=== PATIENT | female | born 1995 | race Caucasian/White ===

== ENCOUNTER 2016-11-16 10:51 | Emergency (ER) | payer OTHER ==
[2016-11-16] MEDS ORDERED: Metoclopramide IV* 5 MG/ML 2 ML VIAL IV ONE (14:16)
[2016-11-16] MEDS ORDERED: NS 0.9% 1000 ML* 1,000 ML IV ONE (14:16)
[2016-11-16 14:33] LABS: Hematocrit 44 % (35-47); Hemoglobin 14.6 g/dl (12.0-16.0); Mean Corpuscular HGB Conc 33 g/dl (31-36); Mean Corpuscular Hemoglobin 29 pg (27-31); Mean Corpuscular Volume 87 fL (80-97); Mean Platelet Volume 8 um3 (7.4-10.4); Red Blood Count 5.11 10^6/ul (4.0-5.4); Red Cell Distribution Width 14 % (10.5-15); White Blood Count 9.3 10^3/ul (3.5-10.8)
[2016-11-16 14:42] LABS: Urine Bacteria Absent (Absent); Urine Bilirubin Negative (Negative); Urine Glucose Negative (Negative); Urine Nitrite Negative (Negative)
[2016-11-16 15:08] LABS: ALT 21 U/L (7-52); AST 20 U/L (13-39); Albumin 4.4 g/dL (3.2-5.2); Alkaline Phosphatase 57 U/L (34-104); Anion Gap 9 mmol/L (2-11); BUN/Creatinine Ratio 8.9 (8-20); Blood Urea Nitrogen 7 mg/dL (6-24); CO2 Carbon Dioxide 23 mmol/L (22-32); Calcium 9.7 mg/dL (8.6-10.3); Chloride 105 mmol/L (101-111); EGFR African American 119.3 (>60); EGFR Non-African American 92.8 (>60); Globulin 3.2 g/dL (2-4); Glucose 98 mg/dL (70-100); Lipase < 10 U/L (11.0-82.0); Potassium 3.9 mmol/L (3.5-5.0); Sodium 137 mmol/L (133-145); Total Protein 7.6 g/dL (6.4-8.9)
[2016-11-16] MEDS ORDERED: Metoclopramide IV* 5 MG/ML 2 ML VIAL ONE ×2 (15:08)
[2016-11-16] MEDS ORDERED: Iohexol 300* (CONTRAST) 10 ML SDV IV ONE (15:53)
[2016-11-16 16:06] VITALS: BP 123/78
--- NOTE | 2016-11-16 16:49 | RAD ---
INDICATION: Abdominal pain. COMPARISON: There are no prior studies available for comparison. TECHNIQUE: A CT scan of the abdomen and pelvis was performed with intravenous and oral contrast following intravenous injection of 100 ml of Omnipaque 300 nonionic contrast. Contiguous axial sections were obtained from the lung bases through the symphysis pubis. Images were reconstructed in the coronal and sagittal planes. FINDINGS: The lung bases are clear. No pleural effusion is present. The liver and spleen are within normal limits in size without significant focal abnormality. No calcified gallstones are seen. The pancreas appears to be within normal limits in size. The kidneys and adrenal glands are normal in size. No hydronephrosis is seen. No significant focal renal abnormality is seen. The aorta is normal in caliber and demonstrates homogeneous contrast opacification. No significant enlarged retroperitoneal lymph nodes are seen. The stomach, small and large bowel appear nondistended. The appendix is within normal limits. There is no evidence for diverticulitis or colitis. There is an anterior abdominal wall hernia present in the midline above the periumbilical region containing fat. There is also a smaller periumbilical hernia containing fat. The uterus is retroverted and normal in size. No free intraperitoneal air or fluid is seen. No significant focal osseous abnormality is seen. IMPRESSION: 1. NO EVIDENCE FOR ACUTE FINDING OR CAUSE FOR THE PATIENT'S ABDOMINAL PAIN IS SEEN. 2. ANTERIOR ABDOMINAL WALL HERNIAS CONTAINING FAT DESCRIBED.
--- NOTE | 2016-11-29 17:37 | ED ---
Candido Fuentes Adam, scribed for Yohan Dalton MD on 11/16/16 at 1333 . GI/ HPI - HPI Summary HPI Summary: Pt is a 21 year old female presenting with abdominal pain and N/V/D. She has pain in her right flank in the back and the front. She reports finding some blood in her vomit. She also c/o dizziness, lightheadedness, and general malaise. She states that she had gastroenteritis 2 weeks ago for 4 days with vomiting and diarrhea. She went to at that time and was given fluids. Pt is on Zoloft. She denies any surgical Hx. Negative tobacco/alcohol use. - History of Current Complaint Chief Complaint: EDNauseaVomitDiarrh Time Seen by Provider: 11/16/16 12:59 Stated Complaint: VOMITING / DIARRHEA Hx Obtained From: Patient Onset/Duration: Started Days Ago, Atraumatic, Still Present Timing: Constant Severity: Moderate Current Severity: Moderate Pain Intensity: 5 Location of Pain: Diffuse, RLQ, Flank - Right Associated Signs and Symptoms: Positive: Dizziness, Nausea, Vomiting - With blood, Diarrhea, Abdominal Pain - Allergy/Home Medications Allergies/Adverse Reactions: Allergies Allergy/AdvReac Type Severity Reaction Status Date / Time No Known Allergies Allergy Verified 11/16/16 11:05 PMH/Surg Hx/FS Hx/Imm Hx Endocrine/Hematology History: Denies: Hx Diabetes Cardiovascular History: Denies: Hx Hypertension Infectious Disease History: Denies: Traveled Outside the [place] in Last 30 Days - Family History Known Family History: Positive: None - R and n/c - Social History Occupation: Student Lives: With Family - Mother Review of Systems Positive: Other - Malaise. Negative: Fever, Chills Negative: Erythema Negative: Sore Throat Negative: Chest Pain Negative: Shortness Of Breath, Cough Positive: Abdominal Pain, Vomiting - With blood, Diarrhea, Nausea Positive: flank pain - Right. Negative: dysuria, hematuria Negative: Myalgia, Edema Negative: Rash Neurological: Other - Dizziness/lightheadedness All Other Systems Reviewed And Are Negative: Yes Physical Exam - Summary Physical Exam Summary: Constitutional: Well-developed, Well-nourished, Alert. (-) Distressed Skin: Warm, Dry HENT: Normocephalic; Atraumatic Eyes: Conjunctiva normal Neck: Musculoskeletal ROM normal neck. (-) JVD, (-) Stridor, (-) Tracheal deviation Cardio: Rhythm regular, rate normal, Heart sounds normal; Intact distal pulses; The pedal pulses are 2+ and symmetric. Radial pulses are 2+ and symmetric. (-) Murmur Pulmonary/Chest wall: Effort normal. (-) Respiratory distress, (-) Wheezes, (-) Rales Abd: Soft, (-) Tenderness, (-) Distension, (-) Guarding, (-) Rebound Musculoskeletal: (-) Edema Lymph: (-) Cervical adenopathy Neuro: Alert, Oriented x3 Psych: Mood and affect Normal Triage Information Reviewed: Yes Vital Signs On Initial Exam: Initial Vitals Temp Pulse Resp BP Pulse Ox 97.6 F 74 18 139/85 97 11/16/16 11:02 11/16/16 11:02 11/16/16 11:02 11/16/16 11:02 11/16/16 11:02 Vital Signs Reviewed: Yes Diagnostics - Vital Signs Vital Signs Temp Pulse Resp BP Pulse Ox 11/16/16 11:02 97.6 F 74 18 139/85 97 - Laboratory Result Diagrams: 11/16/16 14:20 11/16/16 14:20 Lab Statement: Any lab studies that have been ordered have been reviewed, and results considered in the medical decision making process. - CT A/P CT Interpretation Completed By: Radiologist - IMPRESSION: 1. NO EVIDENCE FOR ACUTE FINDING OR CAUSE FOR THE PATIENT'S ABDOMINAL PAIN IS SEEN. 2. ANTERIOR ABDOMINAL WALL HERNIAS CONTAINING FAT DESCRIBED. Re-Evaluation - Re-Evaluation First Eval Re-Evaluation Time: 17:55 - Patient is feeling better. Change: Improved GIGU Course/Dx - Diagnoses Provider Diagnoses: Gastroenteritis, Menses Discharge - Discharge Plan Condition: Stable Disposition: HOME Prescriptions: Metoclopramide TAB* [Reglan TAB*] 10 mg PO Q8H PRN #12 tab PRN Reason: Nausea/Vomiting Ondansetron ODT TAB* [Zofran 4 MG Odt TAB*] 4 mg PO Q8H PRN #12 tab.odt PRN Reason: Nausea/Vomiting Patient Education Materials: Gastroenteritis (ED) Referrals: [facility] @ [Outside] Additional Instructions: Go back to the [facility] tomorrow for re-evaluation. Don't return to class until cleared by the doctor there. Utilize broth and BRAT diet. Drink Gatorade and Powerade. The documentation as recorded by the Candido fry Adam accurately reflects the service I personally performed and the decisions made by me, Yohan Dalton MD.
== END 2016-11-16 18:14 | disposition home or self-care (01) ==
LOC: ED 10:51
DX: K52.9 Noninfective gastroenteritis and colitis, unspecified (principal); N94.89 Other specified conditions associated with female genital organs and menstrual cycle; R42 Dizziness and giddiness; R11.2 Nausea with vomiting, unspecified
CPT/HCPCS: 36415; 74177; 80053; 81003; 81015; 83605; 83690; 85025; 87086; 96374; 96375; 99284; Q9967

== ENCOUNTER 2016-11-17 17:39 | Emergency (ER) | payer OTHER ==
[2016-11-17 18:13] VITALS: BP 136/89
--- NOTE | 2016-11-17 18:26 | UC ---
Abdominal Pain Female HPI - HPI Summary HPI Summary: The patient comes in today for: 1. Abdominal pain, vomiting, diarrhea, hematochezia, vertigo, malaise, Onset: 23 days ago, initial onset, more recent onset--2 days ago. Palliative/provocative: increased room temperature makes worse, but colder room temperature helps. Reglan medication helped. Vomiting makes her "dehydrated." Quality: Throbbing, pulsating, cramp, squeezing Region: epigastric, periumbilical. Severity: 01/28 Time: Comes and goes. Associated symptoms: Fevers: None. Vomitin-6 times/24 hours (7-8 times last night). Blood and coffee ground emesis not seen. Diarrhea: 10 stools/24 hours. She noticed 3-4 stool stingy bloody, mucous stool. Urination: 10/day. Bright yellow. Intestinal disease: Celiac disease, irritable bowel syndrome. She saw a pediatric gasteroentertologist this past summer, on no medications for this. Pevious care: October 26: [facility]: Dx gastroenteritis. October 29: [facility]: Dx gastroenteritis November 15: [facility]: Dx: ? Patient went to ER. Dx: Gastroenteritis. CT scan was negative. * - History of Current Complaint Chief Complaint: UCGI Stated Complaint: VOMITING DIARRHEA ABD PAIN Time Seen by Provider: 11/17/16 18:15 Hx Obtained From: Patient Hx Last Menstrual Period: 10/29/16 Allergies/Adverse Reactions: Allergies Allergy/AdvReac Type Severity Reaction Status Date / Time No Known Allergies Allergy Verified 11/17/16 18:13 Home Medications: Home Medications Sertraline* [Zoloft*] 100 mg PO DAILY 11/17/16 [History Confirmed 11/17/16] PMH/Surg Hx/FS Hx/Imm Hx Previously Healthy: No - Celiac disease, irritable bowel. Endocrine History Of: Denies: Diabetes, Thyroid Disease, Hyperthyroidism, Hypothyroidism, Dyslipidemia Cardiovascular History Of: Denies: Cardiac Disorders, Hypertension, Pacemaker/ICD, Myocardial Infarction , Congestive Heart Failure, Atrial Fibrillation, Deep Vein Thrombosis, Bleeding Disorders Respiratory History Of: Reports: Asthma Denies: COPD, Bronchitis, Pneumonia, Pulmonary Embolism GI/ History Of: Denies: Gastroesophageal Reflux, Ulcer, Gastrointestinal Bleed, Gall Bladder Disease, Kidney Stones, Diverticulitis, Renal Disease, Urosepsis Neurological History Of: Denies: TIA, CVA, Dementia, Seizures, Migraine Psychological History Of: Reports: Anxiety Denies: Depression, Bipolar Disorder, Schizophrenia, Post Traumatic Stress Disorder Cancer History Of: Denies: Lung Cancer, Colorectal Cancer, Breast Cancer, Prostate Cancer, Cervical Cancer Other History Of: Negative For: HIV, Hepatitis B, Hepatitis C, Anticoagulant Therapy - Surgical History Surgical History: None - Family History Known Family History: Positive: Cardiac Disease, Hypertension - Social History Occupation: Student Alcohol Use: None Substance Use Type: Marijuana Substance Use Comment - Amount & Last Used: occasional Smoking Status (MU): Never Smoked Tobacco Review of Systems Constitutional: Negative Skin: Negative Eyes: Negative ENT: Negative Respiratory: Negative Cardiovascular: Negative Gastrointestinal: Abdominal Pain, Vomiting - 15 minutes ago., Diarrhea - 6 hours ago. Genitourinary: Negative All Other Systems Reviewed And Are Negative: Yes Physical Exam Triage Information Reviewed: Yes Appearance: No Pain Distress, Well-Nourished Vital Signs: Initial Vital Signs Temp 99.0 F 11/17/16 18:06 Pulse 68 11/17/16 18:06 Resp 18 11/17/16 18:06 BP 136/89 11/17/16 18:06 Pulse Ox 98 11/17/16 18:06 Vital Signs Reviewed: Yes Eyes: Positive: Conjunctiva Clear. Negative: Discharge ENT: Positive: Hearing grossly normal. Negative: Pharyngeal erythema, Nasal congestion, Nasal drainage, TM bulging, TM dull, TM red, Tonsillar swelling, Tonsillar exudate Dental: Negative: Gross Decay/Caries @, Dental Fracture @ Neck: Positive: Supple, Nontender, No Lymphadenopathy. Negative: Nuchal Rigidity Respiratory: Positive: Lungs clear, No respiratory distress, No accessory muscle use. Negative: Crackles, Wheezing Cardiovascular: Positive: RRR, No Murmur Abdomen Description: Positive: No Organomegaly, Soft, Peritoneal Signs. Negative: Nontender - She has tenderness in the epigastric/LUQ area. There is rebound and percussion tenderness at that, Guarding Bowel Sounds: Positive: Present Musculoskeletal: Positive: Strength Intact, ROM Intact, No Edema Neurological: Positive: Alert, Muscle Tone Normal Psychological: Positive: Age Appropriate Behavior, Consolable Skin: Negative: rashes, breakdown Abd Pain Female Course/Dx - Course Course Of Treatment: Patient was told that due to her rebound and percussion epigastric pain and history of hematochezia, my recommendation is for her to go to the ER. 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 - Differential Dx/Diagnosis Differential Diagnosis: Pancreatitis, Peptic Ulcer Disease Provider Diagnoses: Epigastric abdominal pain. - Physician Notification/Consults Discussed Patient Care With: DR. Varma Time Discussed With Above Provider: 18:52 Discharge - Discharge Plan Condition: Stable Disposition: AGAINST MEDICAL ADVICE Referrals: No Primary Care Phys,NOPCP [Primary Care Provider] - Basim Varma MD [Doctor of Osteopathy] - Additional Instructions: Patient is to go directly via private car to [facility] ER.
== END 2016-11-17 19:00 | disposition left against medical advice (07) ==
LOC: UCEAST 17:39
DX: R10.13 Epigastric pain (principal); R11.10 Vomiting, unspecified; R19.7 Diarrhea, unspecified; K92.1 Melena; R42 Dizziness and giddiness; R53.81 Other malaise; J45.909 Unspecified asthma, uncomplicated; F41.9 Anxiety disorder, unspecified
CPT/HCPCS: 99212; G0463

== ENCOUNTER 2016-11-17 19:16 | Emergency (ER) | payer OTHER ==
[2016-11-17 19:22] VITALS: BP 152/106
[2016-11-17] MEDS ORDERED: Ondansetron INJ* 2 MG/ML VIAL IV ONE (20:41)
[2016-11-17] MEDS ORDERED: Morphine INJ* 4 MG/ML 1 ML SYRINGE IV ONE (20:41)
[2016-11-17] MEDS: NS 0.9% 1000 ML* 2,000 ML IV ONE ×2 (21:21→21:22)
[2016-11-17 21:28] LABS: Urine Bacteria Absent (Absent); Urine Bilirubin Negative (Negative); Urine Glucose Negative (Negative); Urine Nitrite Negative (Negative)
[2016-11-17 21:34] LABS: Hematocrit 47 % (35-47); Hemoglobin 15.1 g/dl (12.0-16.0); Mean Corpuscular HGB Conc 32 g/dl (31-36); Mean Corpuscular Hemoglobin 28 pg (27-31); Mean Corpuscular Volume 87 fL (80-97); Mean Platelet Volume 8 um3 (7.4-10.4); Red Blood Count 5.36 10^6/ul (4.0-5.4); Red Cell Distribution Width 13 % (10.5-15); White Blood Count 8.9 10^3/ul (3.5-10.8)
[2016-11-17 21:50] LABS: ALT 18 U/L (7-52); AST 17 U/L (13-39); Albumin 4.7 g/dL (3.2-5.2); Alkaline Phosphatase 54 U/L (34-104); Anion Gap 11 mmol/L (2-11); BUN/Creatinine Ratio 7.5 (8-20); Blood Urea Nitrogen 5 mg/dL (6-24); CO2 Carbon Dioxide 22 mmol/L (22-32); Chloride 105 mmol/L (101-111); EGFR African American 144.3 (>60); EGFR Non-African American 112.2 (>60); Globulin 3.1 g/dL (2-4); Glucose 93 mg/dL (70-100); Lipase < 10 U/L (11.0-82.0); Magnesium 2.1 mg/dL (1.9-2.7); Potassium 3.5 mmol/L (3.5-5.0); Sodium 138 mmol/L (133-145); Total Protein 7.8 g/dL (6.4-8.9)
--- NOTE | 2016-11-17 23:18 | ED ---
Nuris Fuentes Janilya, scribed for Deisi Pierce MD on 11/17/16 at 2030 . GI/ HPI - HPI Summary HPI Summary: A 21 y/o female came in to [facility] presenting w/ a gradual onset of intermittent GI Sx for the past few weeks. Pt states she had intermittent diarrhea and vomiting from 10/26/2016 to 10/29/2016. Her Sx were somewhat relieved and for the next week, pt only had abd pain and loose stool. There was also blood in her stool. On 11/14/2016, pt started experiencing the same Sx, hence her visit to the ED today. On average, pt has been vomiting 5 times a day and diarrhea 5- 10 times a day. The diarrhea is completely watery and has blood in the stool. Pt states she was seen here last night, and she is here today for a stool test. Pt denies having traveled outside of the recently. - History of Current Complaint Chief Complaint: EDNauseaVomitDiarrh Time Seen by Provider: 11/17/16 20:07 Stated Complaint: ABD PAIN/V&D/SENT FROM [facility] Hx Obtained From: Patient Onset/Duration: Started Weeks Ago, Atraumatic, Still Present Timing: Intermittent Current Severity: Moderate Pain Intensity: 7 Location of Pain: Diffuse Associated Signs and Symptoms: Positive: Nausea, Vomiting, Blood w/Stool, Abdominal Pain - Allergy/Home Medications Allergies/Adverse Reactions: Allergies Allergy/AdvReac Type Severity Reaction Status Date / Time No Known Allergies Allergy Verified 11/17/16 18:13 PMH/Surg Hx/FS Hx/Imm Hx Previously Healthy: Yes Endocrine/Hematology History: Denies: Hx Anticoagulant Therapy, Hx Diabetes, Hx Thyroid Disease Cardiovascular History: Denies: Hx Congestive Heart Failure, Hx Deep Vein Thrombosis, Hx Hypertension , Hx Myocardial Infarction, Hx Pacemaker/ICD Respiratory History: Reports: Hx Asthma Denies: Hx Chronic Obstructive Pulmonary Disease (COPD), Hx Lung Cancer, Hx Pneumonia, Hx Pulmonary Embolism GI History: Denies: Hx Gall Bladder Disease, Hx Gastrointestinal Bleed, Hx Ulcer, Hx Urosepsis History: Denies: Hx Kidney Stones, Hx Renal Disease Neurological History: Denies: Hx Dementia, Hx Migraine, Hx Seizures, Hx Transient Ischemic Attacks (TIA) Psychiatric History: Reports: Hx Anxiety Denies: Hx Depression, Hx Schizophrenia, Hx Bipolar Disorder Infectious Disease History: No Infectious Disease History: Denies: Traveled Outside the [place] in Last 30 Days - Family History Known Family History: Positive: Cardiac Disease, Hypertension - Social History Occupation: Student Alcohol Use: None Hx Substance Use: Yes Substance Use Type: Reports: Marijuana Substance Use Comment - Amount & Last Used: occasional Smoking Status (MU): Never Smoked Tobacco Review of Systems Positive: Abdominal Pain, Vomiting, Diarrhea, Nausea Genitourinary: Other - blood in stool All Other Systems Reviewed And Are Negative: Yes Physical Exam Triage Information Reviewed: Yes Vital Signs On Initial Exam: Initial Vitals Temp Pulse Resp BP 98.5 F 76 18 152/106 11/17/16 19:17 11/17/16 19:17 11/17/16 19:17 11/17/16 19:17 Vital Signs Reviewed: Yes Appearance: Positive: Well-Appearing, No Pain Distress Skin: Positive: Warm, Skin Color Reflects Adequate Perfusion Eyes: Positive: EOMI, GERMÁN ENT: Positive: Pharynx normal, TMs normal Neck: Positive: Supple, Nontender Respiratory/Lung Sounds: Positive: Clear to Auscultation, Breath Sounds Present. Negative: Rales, Rhonchi, Wheezes Cardiovascular: Positive: RRR. Negative: Murmur, Rub, Other - no gallops Abdomen Description: Positive: Soft. Negative: Nontender, Distended, Guarding, Other: - No rebound. Diffusely tender, more so in RUQ and epigatric region. Bowel Sounds: Positive: Present Musculoskeletal: Positive: Strength/ROM Intact. Negative: Edema Left, Edema Right Neurological: Positive: Sensory/Motor Intact, Alert, Oriented to Person Place, Time, CN Intact II-III Psychiatric: Positive: Affect/Mood Appropriate Diagnostics - Vital Signs Vital Signs Temp Pulse Resp BP Pulse Ox 11/17/16 19:22 98.5 F 76 16 152/106 100 11/17/16 19:17 98.5 F 76 18 152/106 - Laboratory Lab Results: Lab Results 11/17/16 11/17/16 11/17/16 Range/Units 20:58 21:15 21:15 WBC 8.9 (3.5-10.8) 10^3/ul RBC 5.36 (4.0-5.4) 10^6/ul Hgb 15.1 (12.0-16.0) g/dl Hct 47 (35-47) % MCV 87 (80-97) fL MCH 28 (27-31) pg MCHC 32 (31-36) g/dl RDW 13 (10.5-15) % Plt Count 265 (150-450) 10^3/ul MPV 8 (7.4-10.4) um3 Neut % (Auto) 63.5 (38-83) % Lymph % (Auto) 25.4 (25-47) % [place] % (Auto) 8.9 (1-9) % Eos % (Auto) 0.6 (0-6) % Baso % (Auto) 1.6 (0-2) % Absolute Neuts (auto) 5.6 (1.5-7.7) 10^3/ul Absolute Lymphs (auto) 2.2 (1.0-4.8) 10^3/ul Absolute Monos (auto) 0.8 (0-0.8) 10^3/ul Absolute Eos (auto) 0.1 (0-0.6) 10^3/ul Absolute Basos (auto) 0.1 (0-0.2) 10^3/ul Absolute Nucleated RBC 0.01 10^3/ul Nucleated RBC % 0.1 Sodium 138 (133-145) mmol/L Potassium 3.5 (3.5-5.0) mmol/L Chloride 105 (101-111) mmol/L Carbon Dioxide 22 (22-32) mmol/L Anion Gap 11 (2-11) mmol/L BUN 5 L (6-24) mg/dL Creatinine 0.67 (0.51-0.95) mg/dL Est GFR ( Amer) 144.3 (>60) Est GFR (Non-Af Amer) 112.2 (>60) BUN/Creatinine Ratio 7.5 L (8-20) Glucose 93 (70-100) mg/dL Calcium 10.0 (8.6-10.3) mg/dL Magnesium 2.1 (1.9-2.7) mg/dL Total Bilirubin 0.50 (0.2-1.0) mg/dL AST 17 (13-39) U/L ALT 18 (7-52) U/L Alkaline Phosphatase 54 (34-104) U/L C-Reactive Protein 7.40 H (< 5.00) mg/L Total Protein 7.8 (6.4-8.9) g/dL Albumin 4.7 (3.2-5.2) g/dL Globulin 3.1 (2-4) g/dL Albumin/Globulin Ratio 1.5 (1-3) Lipase < 10 L (11.0-82.0) U/L Beta HCG, Quant < 0.60 mIU/mL Urine Color Yellow Urine Appearance Cloudy Urine pH 6.0 (5-9) Ur Specific [place] 1.023 (1.010-1.030) Urine Protein 1+(30 mg/dl) H (Negative) Urine Ketones Trace H (Negative) Urine Blood 1+ H (Negative) Urine Nitrate Negative (Negative) Urine Bilirubin Negative (Negative) Urine Urobilinogen Positive H (Negative) Ur Leukocyte Esterase Negative (Negative) Urine WBC (Auto) Trace(0-5/hpf) (Absent) Urine RBC (Auto) 1+(3-5/hpf) H (Absent) Ur Squamous Epith Cells Present H (Absent) Urine Bacteria Absent (Absent) Urine Glucose Negative (Negative) Result Diagrams: 11/17/16 21:15 11/17/16 21:15 Lab Statement: Any lab studies that have been ordered have been reviewed, and results considered in the medical decision making process. GIGU Course/Dx - Course Course Of Treatment: A 21 y/o female came in to [facility] presenting w/ a gradual onset of intermittent GI Sx for the past few weeks. Pt states she had intermittent diarrhea and vomiting from 10/26/2016 to 10/29/2016. Her Sx were somewhat relieved and for the next week, pt only had abd pain and loose stool. There was also blood in her stool. On 11/14/2016, pt started experiencing the same Sx, hence her visit to the ED today. On average, pt has been vomiting 5 times a day and diarrhea 5-10 times a day. The diarrhea is completely watery and has blood in the stool. Pt states she was seen here last night, and she is here today for a stool test. Pt denies having traveled outside of the [place] recently. In ED course, pt had normal saline 1L*2L. Talked with pt's GI doc who asked that certain stool tests be ordered. pt received fluids currently awaiting stool once it is produced pt will be discharged home - Diagnoses Provider Diagnoses: Diarrhea, Vomiting - Physician Notifications Discussed Care Of Patient With: (pt's GI doctor) at 2025: discussed pt care and pt's current condition. Discharge - Discharge Plan Condition: Stable Disposition: HOME The documentation as recorded by the Nuris fry Janilya accurately reflects the service I personally performed and the decisions made by me, Deisi Pierce MD.
== END 2016-11-17 23:49 | disposition home or self-care (01) ==
LOC: ED 19:16
DX: R19.7 Diarrhea, unspecified (principal); R11.2 Nausea with vomiting, unspecified; R10.9 Unspecified abdominal pain
CPT/HCPCS: 36415; 80053; 81003; 81015; 83690; 83735; 83993; 84702; 85025; 86140; 96374; 96375; 99283; J2270; J2405